=== PATIENT | female | born 1995 | race African-American/Black ===

== ENCOUNTER 2017-06-24 11:12 | Emergency (ER) | payer OTHER ==
[2017-06-24] MEDS ORDERED: ONDANSETRON 4 MG/2 ML VIAL IVP ONE (11:18)
[2017-06-24] MEDS ORDERED: KETOROLAC 30 MG/1 ML SDV IVP ONE (11:18)
[2017-06-24] MEDS ORDERED: NS 1,000 ML IV ONE ×2 (11:18→11:46)
[2017-06-24] MEDS ORDERED: ACETAMINOPHEN 500 MG TAB PO ONE (11:18)
--- NOTE | 2017-06-24 11:23 | EDPHY ---
H & P Stated Complaint: Flu a Time Seen by Provider: 06/24/17 11:20 HPI/ROS: HPI: This is a 21-year-old female who presents with Chief Complaint: Flu A positive from spouse family [facility] Location: Body Quality: Aches Duration: 2-3 days Signs and Symptoms: Positive fever, positive chills, positive body aches, positive nonproductive cough, no neck stiffness, no headache, no chest pain, no shortness of breath, no nausea, no vomiting, no diarrhea, no sore throat Timing: Sudden, constant Severity: Moderate to severe Context: Patient is generally healthy and noted a fever for the last 2-3 days accompanied by body aches, chills, and nonproductive cough. Patient went to this [facility] clinic and was diagnosed with influenza a. she has not taking any [id number] antipyretics or pain medication. As she had a fever of 39 C the clinic sent her to the emergency room for further care. No history of lung disease. Denies trying to drink fluids. LMP unknown Modifying Factors: None Comment: ROS: see HPI Constitutional: + fever, +o chills, no weight loss Eyes: No blurred vision Respiratory: No shortness of breath, + cough Cardiovascular: No chest pain Gastrointestinal: No nausea, no vomiting, no diarrhea Genitourinary: No dysuria Extremities: No myalgias Neurologic: No weakness, no numbness Skin: No rashes Hematologic: No bruising, no bleeding MEDICAL/SURGICAL/SOCIAL HISTORY: Medical history: sinus arrhythmia, polycystic ovarian syndrome, scoliosis Surgical history: Denies Social history: Student CONSTITUTIONAL: Ill but nontoxic-appearing teenage female, very difficult historian, awake and alert, no obvious distress HEENT: Atraumatic and normocephalic, PERRL, EOMI. Tympanic membranes clear. Oropharynx clear, no exudate and moist pink mucosa. Airway patent. No lymphadenopathy. No meningismus. Cardiovascular: Normal S1/S2, regular rate, regular rhythm, without murmur rub or gallop. PULMONARY/CHEST: Symmetrical and nontender. Clear to auscultation bilaterally. Good air movement. No accessory muscle usage. ABDOMEN: Soft, nondistended, nontender, no rebound, no guarding, no peritoneal signs, no masses or organomegaly. No CVAT. EXTREMITIES: 2/2 pulses, strength 5/5, no deformities, no clubbing, no cyanosis or edema. NEUROLOGICAL: no focal neuro deficits. GCS 15. SKIN: Warm and dry, no erythema. no rash. Good capillary refill. - Medical/Surgical History Other PMH: sinus arrhythmia, polycytic ovarian syndrome, scoliosis - Social History Smoking Status: Current some day smoker Constitutional: Initial Vital Signs Temperature (C) 39.4 C H 06/24/17 11:20 Heart Rate 114 H 06/24/17 11:20 Respiratory Rate 18 06/24/17 11:20 Blood Pressure 110/61 06/24/17 11:20 O2 Sat (%) 97 06/24/17 11:20 O2 Delivery Mode Room Air Allergies/Adverse Reactions: Penicillins Allergy (Verified 05/29/16 17:53) Home Medications: Medication Instructions Recorded Hydrocodone/APAP 5/325 [Gate 1 tab PO Q6 PRN #10 tab 05/29/16 5/325 (RX)] Medical Decision Making - Diagnostics Imaging Results: Imaging Impressions Chest X-Ray 06/24/17 11:19 Impression: Normal chest x-ray. ED Course/Re-evaluation: Chest x-ray ordered Given 2 L normal saline, IV Toradol and p.o. 1000 mg of Tylenol Patient is low risk and symptoms have been present between 48-72 hours; will not give Tamiflu Chest x-ray my read shows no acute opacity, effusion, pneumothorax Differential Diagnosis: Differential diagnosis is influenza a positive, pneumonia, dehydration. - Data Points Laboratory Results: 06/24/17 11:48 Urine Test Pending Medications Given: Discontinued Medications Acetaminophen (Tylenol) 1,000 mg PO EDNOW ONE Stop: 06/24/17 11:19 Last Admin: 06/24/17 11:45 Dose: 1,000 mg Sodium Chloride (Ns) 1,000 mls @ 0 mls/hr IV EDNOW ONE; Wide Open PRN Reason: Protocol Stop: 06/24/17 11:19 Last Admin: 06/24/17 11:30 Dose: 1,000 mls Sodium Chloride (Ns) 1,000 mls @ 0 mls/hr IV EDNOW ONE; Wide Open PRN Reason: Protocol Stop: 06/24/17 11:47 Last Admin: 06/24/17 12:43 Dose: 1,000 mls Ketorolac Tromethamine (Toradol) 30 mg IVP EDNOW ONE Stop: 06/24/17 11:19 Last Admin: 06/24/17 11:44 Dose: 30 mg Ondansetron HCl (Zofran) 4 mg IVP EDNOW ONE Stop: 06/24/17 11:19 Last Admin: 06/24/17 11:44 Dose: 4 mg Departure - Departure Disposition: Home, Routine, Self-Care Clinical Impression: Influenza A Condition: Good Instructions: Influenza (ED) Additional Instructions: Chest x-ray today does not show pneumonia. Please drink plenty of fluids to prevent dehydration. Take Tylenol and/or ibuprofen as needed for fever, body aches, headache. Rest at home until feeling better. Wash hands frequently and cover mouth when coughing to prevent spread of infection. Referrals: DAVID DIGGS MD [Medical Doctor] - As per Instructions
[2017-06-24 12:46] VITALS: BP 103/45; PULSE 104; RESP 16; TEMP 97.9; O2SAT 94
== END 2017-06-24 13:03 | disposition home or self-care (01) ==
LOC: EDUNIT#
DX: J10.1 Influenza due to other identified influenza virus with other respiratory manifestations (principal); F17.200 Nicotine dependence, unspecified, uncomplicated; E86.9 Volume depletion, unspecified
CPT/HCPCS: 96374; J1885; J2405